=== PATIENT | male | born 1995 | race Caucasian/White ===

== ENCOUNTER 2018-06-02 19:15 | Emergency (ER) | payer SELFPAY ==
[2018-06-02 19:20] VITALS: BP 147/83
== END 2018-06-02 21:45 | disposition left against medical advice (07) ==
LOC: EDBD → ED 19:15
DX: Z20.2 Contact with and (suspected) exposure to infections with a predominantly sexual mode of transmission (principal); Z53.21 Procedure and treatment not carried out due to patient leaving prior to being seen by health care provider